=== PATIENT | female | born 1945 | race Caucasian/White ===

== ENCOUNTER 2019-12-02 11:11 | Inpatient (IN) | payer MEDICARE, BC, SELFPAY ==
[2019-12-02] VITALS (8 sets, daily range): BP systolic 148–212; BP diastolic 79–175; PULSE 73–146; RESP 14–22; TEMP 36.7–36.8; O2SAT 95–100
--- NOTE | ~2019-12-02 | XR_ITS ---
EXAMINATION: XR chest 2V EXAM DATE: 12/02/2019 12:19 INDICATION: Weakness. Diarrhea, abdominal pain. TECHNIQUE: Frontal and lateral projections of the chest obtained and reviewed. Comparison is made to prior examination from 07/21/2019. FINDINGS: The lungs are clear. There are no pleural effusions. Cardiac silhouette is prominent but magnified on this AP technique. There is no pneumothorax suspected. The bones and soft tissues are unremarkable. There is no significant interval change. IMPRESSION: No acute cardiopulmonary findings. Reviewed, dictated and finalized at location A.
--- NOTE | ~2019-12-02 | CT_ITS ---
EXAMINATION: CT abdomen pelvis w con EXAM DATE: 12/02/2019 12:53 INDICATION: Diarrhea. Weakness. Abdominal cramping. TECHNIQUE: Spiral CT of the abdomen and pelvis was performed following intravenous injection of 100 m L Omnipaque 350. Axial, coronal and sagittal images were reviewed. The dose-length product (DLP) fo r this examination was 1598.79 mGy-cm. The exposure was tailored according to patient size (auto mA exposure control), and iterative reconstruction (ASIR) was used as additional dose reduction techniqu e. There is no prior study for comparison. FINDINGS: The liver, spleen, adrenal glands and pancreas are unremarkable. Gallbladder not identifie d, patient likely has had cholecystectomy. Portal and splenic veins are patent. Kidneys enhance sym metrically. There is no hydronephrosis. Mild bilateral renal atrophy. The uterus is unremarkable. The bladder is undistended at time of imaging. There is no retroperitoneal or pelvic lymphadenopath y. The appendix is normal. Gastric surgical changes. There is small amount of colonic stool. No free intraperitoneal gas. The heart is normal in size. There are no pericardial or pleural effusions. The lung bases are unremarkable. There are no osteoblastic or osteolytic lesions identified. IMPRESSION: 1. No acute intra-abdominal findings. Reviewed, dictated and finalized at location A.
--- NOTE | 2019-12-02 11:16 | ECG_ITS ---
Measurements Intervals [place] Rate: 84 P: 86 HI: 155 QRS: -12 QRSD: 108 T: -18 QT: 337 QTc: 400 Interpretive Statements SINUS RHYTHM WITH SINUS ARRHYTHMIA FREQUENT ATRIAL PREMATURE COMPLEXES INCOMPLETE RIGHT BUNDLE BRANCH BLOCK NONSPECIFIC T-WAVE ABNORMALITY- ANTEROLAT/INF LEADS BASELINE ARTIFACT- I, II, III, AVR, AVL, AVF, V1-V6 ABNORMAL ECG Electronically Signed On 12-02-2019 15:07:22 CDT by Stu Sauceda D.O.
[2019-12-02 11:38] LABS: Basophils Absolute Auto 0.1 K/mm3 (0.0-0.1); Basophils Percent Auto 0.4 % (0.2-1.2); Eosinophils Absolute Auto 0.4 K/mm3 (0-0.3); Eosinophils Percent Auto 2.4 % (0-4.4); Hematocrit 40.1 % (37.0-47.0); Hemoglobin 11.8 g/dL (12.0-15.0); Immature Granulocyte Absolute 0.07 K/mm3 (0.00-0.031); Immature Granulocyte Percent A 0.5 % (0-0.5); Lymphocytes Absolute Auto 9.46 K/mm3 (0.9-3.2); Lymphocytes Percent Auto 62.2 % (18.3-44.2); Mean Corpuscular HGB Conc 29.4 g/dl (32-36); Mean Corpuscular Hemoglobin 22.8 pg (26-34); Mean Corpuscular Volume 77.6 fl (80-100); Mean Platelet Volume 10.5 fl (7.4-10.4); Monocytes Absolute Auto 0.5 K/mm3 (0.1-0.6); Monocytes Percent Auto 3.2 % (2.6-8.5); Neutrophils Absolute Auto 4.8 K/mm3 (1.3-6.7); Neutrophils Percent Auto 31.3 % (45.5-73.1); Platelet Count Result 233 k/mm3 (150-375); Red Blood Count 5.17 M/mm3 (4.2-5.4); Red Cell Distribution Width 15.7 % (11.5-14.5); White Blood Count 15.2 K/mm3 (4.5-10.0)
[2019-12-02 11:45] LABS: Platelet Estimate Adequate (Adequate)
[2019-12-02 11:46] LABS: Ovalocytes 1+ (NORMAL)
[2019-12-02 11:52] LABS: Alanine Aminotransferase 13 U/L (4-35); Albumin Level 3.6 g/dL (3.5-5.1); Alkaline Phosphatase 116 U/L (38-126); Aspartate Amino Transferase 19 U/L (14-36); Bilirubin,Total 0.5 mg/dL (0.2-1.3); Blood Urea Nitrogen 20 mg/dL (7-17); Calcium 9.4 mg/dL (8.4-10.2); Carbon Dioxide 32 mmol/L (22-30); Chloride 98 mmol/L (98-107); Estimated CRCL calculation 64 ml/min; Estimated Glomerular Filt Rate 49; Glucose 356 mg/dL (65-105); Potassium 4.2 mmol/L (3.4-5.0); Sodium 133 mmol/L (137-145)
--- NOTE | 2019-12-02 12:01 | ED.WEAKNESS ---
HPI - Weakness General Chief complaint: Weakness Stated complaint: weakness x3 weeks Time Seen by Provider: 12/02/19 11:20 Source: patient Mode of arrival: EMS Limitations: no limitations History of Present Illness HPI Narrative: Patient is a 74-year-old female who presents to the emergency department complaint of generalized weakness. Patient states she has felt weak all over for the past 3 weeks, but symptoms were significantly worse today. Patient almost fell twice but managed to get herself into a chair and did not sustain actual fall or injury. Patient states when she gets up to try and walk her legs shake in she feels severely weak. Patient states she has had some diarrhea for the past 3 days and a little bit of nausea. She denies any abdominal pain. She denies any fever, chest pain, cough, or shortness of breath. MD Complaint: generalized weakness and difficulty walking Onset (ago): week(s) (3) Duration: constant and progressively worsening Location: generalized Related Data Home Medications Medication Instructions Recorded Confirmed simvastatin 40 mg tablet 40 mg PO DAILY 07/10/19 sitagliptin 100 mg tablet 100 mg PO DAILY 07/10/19 insulin detemir U-100 [Levemir 18 unit SUBCUT HS 12/02/19 FlexTouch U-100 Insuln] insulin detemir U-100 [Levemir 66 unit SUB-Q QAM 12/02/19 U-100 Insulin] levothyroxine [Synthroid] 175 mcg PO DAILY 12/02/19 meclizine 25 mg PO BID 12/02/19 mirabegron [Myrbetriq] 25 mg PO DAILY 12/02/19 naltrexone 4.5 mg PO DAILY 12/02/19 Allergies Allergy/AdvReac Type Severity Reaction Status Date / Time amlodipine Allergy Intermediate Hives Verified 12/02/19 11:36 Review of Systems Review of Systems: All systems reviewed & are unremarkable except as noted in HPI and below Constitutional: Constitutional: Denies fever(s) and Reports weakness Cardiovascular: Cardiovascular: Denies chest pain Respiratory: Respiratory: Denies cough and Denies dyspnea Gastrointestinal: Gastrointestinal: Denies abdominal pain, Reports diarrhea and Reports nausea PMFSH Past Medical History Medical History Anxiety disorder, unspecified Choroid melanoma of left eye COPD (chronic obstructive pulmonary disease) Depression Mixed hyperlipidemia Thyroid cancer Type 2 diabetes mellitus without complications Surgical History Surgical History (Updated 12/02/19 @ 12:06 by Bibiana Krishna MD) History of cholecystectomy History of thyroidectomy History of total knee replacement Social History Social History Smoking status: Never smoker Second hand tobacco smoke exposure: No Alcohol intake: never Exam Const: General: cooperative, no acute distress and alert Nutritional Appearance: obese morbidly obese Orientation/consciousness: patient oriented x3 Limitations: no limitations Resp: Effort & Inspection: normal respiratory effort Auscultation: clear to auscultation bilaterally Cardio: Rate: regular rate Rhythm: regular rhythm GI: GI Palp: Yes Soft to palpation and No Tenderness to palpation present (GI) Auscultation: normal bowel sounds Skin: General skin exam: normal color Neuro: General: patient oriented x3 Cognition (Neuro): normal cognition Speech: normal speech Extrem: General: normal to inspection, full ROM and no clubbing, cyanosis or edema Psych: Mental Status: mental status grossly normal Affect: normal affect Attitude: cooperative Course Course Emergency Course: Patient appears to be slightly dehydrated based on labs. Patient given liter of IV fluids. Attempted orthostatic vital signs after patient given fluids and patient very weak and shaky in her legs. She became tachycardic and dizzy and was unable to make any attempted ambulation. Patient placed back in bed and will be admitted to hospitalist service for further evaluation. No acute abnormalitie
[2019-12-02 12:11] LABS: Add Urine Microscopic? YES; Appearance Urine Clear (Clear); Bacteria Urine Trace /hpf; Bilirubin Urine Negative (Negative); Blood Urine Negative (Negative); Color Urine Yellow (Yellow); Glucose Urine UA 3+ mg/dL (Negative); Ketones Urine Negative (Negative); Leukocyte Esterase Ur Negative LEU/UL (Negative); Mucus Urine Rare /lpf; Nitrate Urine Negative (Negative); Protein Urine 1+ mg/dL (Negative); RBC Urine 0-2 /hpf (0-2); Squamous Epithelial Cell Urine Occasional /hpf (Few); Urobilinogen Urine Negative mg/dL (<2.0); WBC Urine 0-3 /hpf
[2019-12-02 12:12] LABS: Specific Grav Ur 1.031 (1.001-1.035)
[2019-12-02 12:18] LABS: Creatine Kinase 30 U/L (30-135)
--- NOTE | 2019-12-02 12:28 | PC.NURSE ---
Called lab to add on CK.
[2019-12-02] MEDS: LACTATED RINGERS 1,000 ML 999 ML IV CONT (13:29)
--- NOTE | 2019-12-02 16:12 | PC.NURSE ---
This patient, Nydia Sánchez, was admitted to 2 Medical Room 259-01. Patient/family oriented to hospital policies and general routines including ID bracelet, bed and alarms, visiting hours, pain management, procedures, bathroom and other care routines, personal items, smoking policy, room service/diet, and visiting hours. Valuables list has been completed. Information on how to activate the Rapid Response Team has been discussed. Patient/Family are encouraged to report perceived risks to care and to ask questions if they do not understand what they are told or what they should do.
[2019-12-02 16:33] LABS: Glucose Point of Care 270 (65-105)
[2019-12-02] MEDS: SODIUM CHLORIDE 0.9% IV 1,000 ML 125 ML IV CONT (17:14)
--- NOTE | 2019-12-02 17:40 | PC.NURSE ---
Patient reports her son has her medication bottles at home and can confirm her home medications. Call to son Marcel by charge nurse Emy but unable to reach him at this time. Will obtain list once son can confirm.
--- NOTE | 2019-12-02 19:00 | PM.IMHP ---
H&P: HPI History of Present Illness Chief complaint: Generalized weakness. Narrative: Nydia Sánchez is a 74-year-old female with insulin-dependent diabetes, COPD, hypertension, and morbid obesity who presented to the emergency department earlier this morning via EMS from home for evaluation of generalized weakness. She notes progressive weakness over the past 3 weeks or so, but cannot really pinpoint anything that may be causing the weakness. She does admit however that she has not been very active recently, and has only left house 2 times since October 19, [address]. For the last several days she has had decreased oral intake due to nausea and she also reports having about 3 loose stools per day. She has been very thirsty ?and I cannot quench my thirst.? She was hyperglycemic on arrival to the emergency department, and with further questioning she does admit that she has not been checking her glucose recently as her glucometer is not currently working. In any regard, this morning she reports feeling weak and dizzy upon standing and while ambulating to the bathroom her legs began to wobble, and she had to sit immediately down in a chair to prevent herself from falling. She denies fever, chills, and sweats. No cold or flu symptoms. She denies cough and shortness of breath. No recent travel or sick contacts. No known exposure to those positive with COVID-19. She denies vomiting. No dysuria. No blood or mucus in the stool. Review of Systems Review of Systems: Narrative: Twelve systems were reviewed with pertinent positives and negatives as per HPI. No headache or neck ache. No recent cold or flu symptoms. She denies cough and shortness of breath. No orthopnea or PND. She has chronic lower extremity edema which is unchanged. She denies focal weakness and paresthesias. No auditory or visual changes. No chest pain or palpitations. Except as documented, all other systems were reviewed and are negative. [facility] Past Medical History Medical History (Updated 12/02/19 @ 22:04 by Wilda Vega PA-C) Anxiety disorder, unspecified Choroid melanoma of left eye It sounds as though she had a radioactive plaque inserted. Chronic kidney disease, stage 3 Baseline creatinine between 1.0 and 1.30. COPD (chronic obstructive pulmonary disease) Depression Diastolic dysfunction Echocardiogram in July 2018 showed normal left ventricular size and function was pseudo normal diastolic dysfunction grade 2 ejection fraction estimated at 60 to 65%. GERD (gastroesophageal reflux disease) Hypothyroidism Insulin dependent type 2 diabetes mellitus Mixed hyperlipidemia Morbid obesity Thyroid cancer Urinary, incontinence, stress female Surgical History Surgical History History of cholecystectomy History of thyroidectomy History of total knee replacement Family History Family History Mother Cerebrovascular accident Diabetes mellitus Hypertension Father Chronic obstructive pulmonary disease Other Family history of coronary artery disease Social History Social History (Updated 12/02/19 @ 22:01 by Wilda Vega PA-C) Social History: The patient lives in [place] with her son and his family. She designates her son, Farhat, as her surrogate decision maker and she wishes to be a full code. She is a lifelong nonsmoker and denies alcohol and drug abuse. Patient ambulates with a walker. Second hand tobacco smoke exposure: Yes Spiritual care concerns: No Agree to blood products: Yes Meds Home Medications and Allergies Home Medications Medication Instructions Recorded Confirmed Type losartan 100 mg tablet 100 mg PO DAILY #90 tablet 10/01/19 12/02/19 Rx prochlorperazine maleate 5 mg 5 mg PO Q8H PRN #30 tablet 11/15/19 12/02/19 Rx tablet meloxicam 7.5 mg tablet 7.5 mg PO BID #
[2019-12-02 22:31] LABS: Hemoglobin A1C 13.3 % (<5.7)
[2019-12-02 22:31] LABS: Iron 57 ug/dL (37-170)
[2019-12-02 22:39] LABS: Percent Iron Saturation 17 % (20-50)
[2019-12-02] MEDS: INSULIN DETEMIR 100 UNITS/ML 18 UNITS SUB-Q (23:11)
[2019-12-02] MEDS: ZOLPIDEM TARTRATE 5 MG TABLET PO (23:13)
[2019-12-02 23:39] LABS: Folic Acid 7.9 ng/mL (2.76->20)
[2019-12-03 00:31] LABS: Glucose Point of Care 336 (65-105)
[2019-12-03] MEDS: SODIUM CHLORIDE 0.9% IV 1,000 ML 125 ML IV CONT (01:16)
[2019-12-03 05:21] LABS: Basophils Absolute Auto 0.1 K/mm3 (0.0-0.1); Basophils Percent Auto 0.6 % (0.2-1.2); Eosinophils Absolute Auto 0.4 K/mm3 (0-0.3); Eosinophils Percent Auto 2.8 % (0-4.4); Hemoglobin 11.1 g/dL (12.0-15.0); Immature Granulocyte Absolute 0.07 K/mm3 (0.00-0.031); Immature Granulocyte Percent A 0.5 % (0-0.5); Lymphocytes Absolute Auto 9.43 K/mm3 (0.9-3.2); Lymphocytes Percent Auto 66.4 % (18.3-44.2); Mean Corpuscular HGB Conc 29.2 g/dl (32-36); Mean Corpuscular Hemoglobin 23.1 pg (26-34); Mean Corpuscular Volume 79.2 fl (80-100); Mean Platelet Volume 10.2 fl (7.4-10.4); Monocytes Absolute Auto 0.6 K/mm3 (0.1-0.6); Monocytes Percent Auto 4.4 % (2.6-8.5); Neutrophils Absolute Auto 3.6 K/mm3 (1.3-6.7); Neutrophils Percent Auto 25.3 % (45.5-73.1); Platelet Count Result 177 k/mm3 (150-375); Red Cell Distribution Width 15.7 % (11.5-14.5); White Blood Count 14.2 K/mm3 (4.5-10.0)
[2019-12-03 05:26] LABS: Blood Urea Nitrogen 17 mg/dL (7-17); Calcium 8.9 mg/dL (8.4-10.2); Carbon Dioxide 27 mmol/L (22-30); Chloride 104 mmol/L (98-107); Estimated CRCL calculation 77 ml/min; Estimated Glomerular Filt Rate > 60; Glucose 248 mg/dL (65-105); Magnesium 1.4 mg/dL (1.6-2.3); Phosphorus 3.5 mg/dL (2.5-4.5); Potassium 3.7 mmol/L (3.4-5.0); Sodium 135 mmol/L (137-145)
[2019-12-03 05:56] VITALS: BP 158/82; PULSE 86; RESP 20; TEMP 36.8; O2SAT 96
[2019-12-03 06:11] LABS: Atypical Lymphocytes Present; Eosinophils Absolute Manual 0.56 K/mm3 (0.02-0.5); Eosinophils Percent Manual 4 % (0-4); Lymphocytes Absolute Manual 7.24 K/mm3 (1.1-4.5); Monocytes Absolute Manual 0.42 K/mm3 (0.1-0.90); Monocytes Percent Manual 3 % (3-9); Neutrophils Percent Manual 42 % (46-73); Platelet Estimate Adequate (Adequate); Total Cells Counted 100
[2019-12-03 06:12] LABS: Hypochromasia 2+ (NORMAL); Ovalocytes 1+ (NORMAL); Smudge Cells PRESENT
[2019-12-03 06:34] LABS: Thyroid Stimulating Hormone Reflex 0.086 uIU/mL (0.465-4.68)
[2019-12-03] MEDS: LEVOTHYROXINE SODIUM 75 MCG TABLET PO (06:43)
[2019-12-03] MEDS: LEVOTHYROXINE SODIUM 100 MCG TABLET PO (06:43)
[2019-12-03 07:42] LABS: Glucose Point of Care 219 (65-105)
[2019-12-03] MEDS: INSULIN ASPART (*BKC) 100 UNITS/ML SUB-Q ×2 (08:01→11:47)
[2019-12-03] MEDS: INSULIN DETEMIR 100 UNITS/ML 66 UNITS SUB-Q (08:02)
[2019-12-03] MEDS: MECLIZINE HCL 25 MG TABLET PO ×2 (08:14→17:32)
[2019-12-03] MEDS: ENOXAPARIN 40 MG/0.4 ML SYRINGE SUB-Q (08:14)
[2019-12-03] MEDS: PANTOPRAZOLE 40 MG TABLET PO (08:14)
[2019-12-03] MEDS: MIRABEGRON 25 MG ER TABLET PO (08:14)
[2019-12-03] MEDS: LOSARTAN POTASSIUM 100 MG TABLET PO (08:14)
[2019-12-03] MEDS: SODIUM CHLORIDE 0.9% IV 1,000 ML 100 ML IV CONT (10:39)
[2019-12-03 11:46] LABS: Glucose Point of Care 266 (65-105)
[2019-12-03 14:00] VITALS: BP 127/55; PULSE 86; RESP 17; TEMP 36.9; O2SAT 98
--- NOTE | 2019-12-03 15:42 | PM.IMPN ---
Progress Note: A&P Assessment and Plan (1) Generalized weakness: Code(s): R53.1 - Weakness Status: Acute Assessment and Plan: Likely multifactorial in etiology to include chronic debility exacerbated by limited activity due to [facility] in place over the past month and a half in addition to poor oral intake, diarrhea, and hyperglycemia. Initiate fall precautions. PT/OT consulted. 12/03/19 15:42 Patient is 74-year-old female presented emergency department with a complaint of weakness difficulty with ambulation her symptoms are persisting for last 3 weeks she denies any complaint of dysuria or frequency of urination chest pain palpitation fever or chills, her urine is benign, chest x-ray does not show any any sign of infiltrate, most likely is multifactorial is patient history of hypothyroid with with low TSH and high T4, uncontrolled diabetes with A1c of 13.3, and hypomagnesium patient with history of hypothyroid taking levothyroxine 175 mcg q.day, her TSH is low and her free T4 is high suggesting patient patient is taking too much levothyroxine this can possibly result and weakness, however heart rate is under control, will hold her levothyroxine for time being, it may take at least 6 weeks to adjust her her thyroid levels. Similarly patient has uncontrolled diabetes with hemoglobin A1c of 13.3 hyperglycemia can also lead to generalized weakness will have community nutrition educator consult her, will monitor magnesium and the supplement (2) Leukocytosis: Code(s): D72.829 - Elevated white blood cell count, unspecified Status: Acute Assessment and Plan: 62.2% lymphocytes and 31.3 % neutrophils noted on automated differential. 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 (3) Insulin dependent type 2 diabetes mellitus: Code(s): E11.9 - Type 2 diabetes mellitus without complications; Z79.4 - skilled nursing (current) use of insulin Status: Acute Assessment and Plan: Random glucose was 356 on arrival to the emergency department. Continue basal insulin and check hemoglobin A1c. Initiate sliding scale insulin, Accu-Cheks, and hypoglycemic protocol. Plan is above (4) Microcytic anemia: Code(s): D50.9 - Iron deficiency anemia, unspecified Status: Acute Assessment and Plan: Check iron studies as well as stool for occult blood. Patient had an is normal however iron saturation is low (5) Hypothyroidism: Code(s): E03.9 - Hypothyroidism, unspecified Status: Acute Assessment and Plan: Continue levothyroxine and check TSH. Plan is above Subjective Date/time seen: 12/03/19 15:42 Patient is 74-year-old female presented emergency department with a complaint of weakness difficulty with ambulation her symptoms are persisting for last 3 weeks she denies any complaint of dysuria or frequency of urination chest pain palpitation fever or chills, her urine is benign, chest x-ray does not show any any sign of infiltrate, most likely is multifactorial is patient history of hypothyroid with with low TSH and high T4, uncontrolled diabetes with A1c of 13.3, and hypomagnesium patient with history of hypothyroid taking levothyroxine 175 mcg q.day, her TSH is low and her free T4 is high suggesting patient patient is taking too much levothyroxine this can possibly result and weakness, however heart rate is under control, will hold her levothyroxine for time being, it may take at least 6 weeks to adjust her her thyroid levels. Similarly patient has uncontrolled diabetes with hemoglobin A1c of 13.3 hyperglycemia can also lead to generalized weakness will have community nutrition educator consult her,
[2019-12-03 16:47] LABS: Glucose Point of Care 183 (65-105)
[2019-12-03] MEDS: MAGNESIUM SULF 2 GM/WATER 50ML 2 GM/50 ML BAG IVPB (17:30)
[2019-12-03 20:00] VITALS: PULSE 96; RESP 20; O2SAT 96
[2019-12-03] MEDS: ZOLPIDEM TARTRATE 5 MG TABLET PO (20:22)
[2019-12-03] MEDS: INSULIN DETEMIR 100 UNITS/ML 18 UNITS SUB-Q (20:24)
[2019-12-03 20:39] LABS: Glucose Point of Care 225 (65-105)
[2019-12-03 22:00] VITALS: BP 194/92; PULSE 96; RESP 20; TEMP 36.3; O2SAT 96
[2019-12-04 06:00] VITALS: BP 190/94; PULSE 67; RESP 20; TEMP 36.3; O2SAT 96
[2019-12-04] MEDS: LOSARTAN POTASSIUM 100 MG TABLET PO (06:12)
[2019-12-04 06:29] LABS: Hematocrit 37.6 % (37.0-47.0); Hemoglobin 11.1 g/dL (12.0-15.0); Mean Corpuscular HGB Conc 29.5 g/dl (32-36); Mean Corpuscular Hemoglobin 22.7 pg (26-34); Mean Platelet Volume 9.8 fl (7.4-10.4); Platelet Count Result 189 k/mm3 (150-375); Red Blood Count 4.88 M/mm3 (4.2-5.4); Red Cell Distribution Width 15.7 % (11.5-14.5); White Blood Count 13.5 K/mm3 (4.5-10.0)
[2019-12-04 06:40] LABS: Blood Urea Nitrogen 16 mg/dL (7-17); Calcium 8.8 mg/dL (8.4-10.2); Carbon Dioxide 23 mmol/L (22-30); Chloride 106 mmol/L (98-107); Estimated CRCL calculation 86 ml/min; Estimated Glomerular Filt Rate > 60; Glucose 142 mg/dL (65-105); Potassium 3.9 mmol/L (3.4-5.0); Sodium 133 mmol/L (137-145)
[2019-12-04 07:20] LABS: Thyroid Stimulating Hormone Reflex 0.109 uIU/mL (0.465-4.68)
[2019-12-04 07:39] LABS: Glucose Point of Care 149 (65-105)
[2019-12-04 08:20] VITALS: BP 170/96; PULSE 71; RESP 24; TEMP 36.5; O2SAT 100
--- NOTE | 2019-12-04 08:40 | PC.NURSE ---
Unable to administer PRN hydralizine due to lack of IV access. Will continue to monitor blood pressure. IV access nurse called and to see patient.
[2019-12-04] MEDS: INSULIN DETEMIR 100 UNITS/ML 33 UNITS SUB-Q (08:47)
[2019-12-04] MEDS: PANTOPRAZOLE 40 MG TABLET PO (08:49)
[2019-12-04] MEDS: MECLIZINE HCL 25 MG TABLET PO ×2 (08:49→17:06)
[2019-12-04] MEDS: MIRABEGRON 25 MG ER TABLET PO (08:49)
[2019-12-04] MEDS: ENOXAPARIN 40 MG/0.4 ML SYRINGE SUB-Q (08:49)
[2019-12-04] MEDS: MAGNESIUM OXIDE 400 MG TABLET PO (08:50)
[2019-12-04 09:25] VITALS: BP 142/73; PULSE 93; O2SAT 96
[2019-12-04] MEDS: INSULIN ASPART (*BKC) 100 UNITS/ML SUB-Q ×2 (11:27→17:05)
[2019-12-04 11:38] LABS: Glucose Point of Care 241 (65-105)
--- NOTE | 2019-12-04 11:54 | PCOTNOTE ---
Patient sleeping soundly upon therapist arrival, patient not disturbed for this reason. Not seen for OT this AM, will try later if time permits.
[2019-12-04 14:00] VITALS: BP 153/80; PULSE 86; RESP 22; TEMP 36.6; O2SAT 96
--- NOTE | 2019-12-04 15:42 | PM.DS ---
DS: Diagnosis Admitting Diagnosis Admitting Diagnosis: Weakness Discharge Diagnosis (1) Generalized weakness: Code(s): R53.1 - Weakness Status: Acute Assessment and Plan: Likely multifactorial in etiology to include chronic debility exacerbated by limited activity due to group home in place over the past month and a half, in addition to poor oral intake, diarrhea, and hyperglycemia. Patient states she feels much improved today. PT/OT consulted. Will discharge today; home with PT/OT Recommended patient follow up with Endocrinologists after discharge about TSH/T4 abnormalities and A1c of 13.3 Will continue DM home regimen with prompt follow up with her Chucker. Recommend checking sugars 4-5 times daily and keeping a log. Will provide script for new glucometer/strips (2) Leukocytosis: Code(s): D72.829 - Elevated white blood cell count, unspecified Status: Acute Assessment and Plan: 62.2% lymphocytes and 31.3 % neutrophils noted on automated differential. Possibly signs of early CLL? Discussed the need to follow-up with her communication and outreach manager/oncologist as an outpatient. Patient agreeable with plan (3) Insulin dependent type 2 diabetes mellitus: Code(s): E11.9 - Type 2 diabetes mellitus without complications; Z79.4 - intermediate project manager (current) use of insulin Status: Acute Assessment and Plan: Random glucose was 356 on arrival to the emergency department. A1c 13.3. Patient states she was not very compliant with her diabetic diet these past several weeks, drinking soda regularly for several days prior to arrival Continue home insulin regimen Recommend following up with Chucker Frequent glucose checks at home as well Sliding scale insulin, Accu-Cheks, and hypoglycemic protocol during stay (4) Microcytic anemia: Code(s): D50.9 - Iron deficiency anemia, unspecified Status: Acute Assessment and Plan: Iron sat low; Iron, TIBC WNL. Stool occult not collected. Hgb 11.1 today; stable Will recommend repeat blood work in 1 week (5) Hypothyroidism: Code(s): E03.9 - Hypothyroidism, unspecified Status: Acute Assessment and Plan: TSH low, and T4 slightly high Will continue levothyroxine and check TSH as outpatient. Follow up with Chucker DS: Summary Hospital Course Reason for hospitalization: Generalized weakness Hospital Course: Patient is a 74 yo F with insulin-dependent diabetes, COPD, hypertension, and morbid obesity who presented to the emergency department on morning of 12/01 via EMS from home for evaluation of generalized weakness. PAtient notes progressive weakness over previous 3 weeks prior to arrival, but could not pinpoint anything possibly causing weakness. She had noted being very inactive since the begininning october due to group home in place order. She was found to be hyperglycemic on arrival to ER. She had noted her glucometer was not functioning properly. Please see H&P for further details Presenting VS: Temp Pulse Resp BP Pulse Ox 98.2 F 87 18 163/97 H 96 RA 12/02/19 11:08 12/02/19 11:08 12/02/19 11:08 12/02/19 11:08 12/02/19 11:08 Presenting Pertinent labs: WBC 15.2k, lymph 62.2%, neut 31.3%, BGL 356, A1c 13.3, Cr 1.10, iron 57, TIBC 342, %sat 17, ferritin 10.70. UA showed 1+ protein, 3+ glucose, 5-9 hyaline casts. CBC, chemistry, UA otherwise unremarkable. Micro: none Imaging: Chest X-Ray 12/02/19 12:21 IMPRESSION: No acute cardiopulmonary findings. Abdomen/Pelvis CT 12/02/19 12:56 IMPRESSION: 1. No acute intra-abdominal findings. ECG: Interpretive Statements SINUS RHYTHM WITH SINUS ARRHYTHMIA FREQUENT ATRIAL PREMATURE COMPLEXES INCOMPLETE
[2019-12-04 16:47] LABS: Glucose Point of Care 233 (65-105)
[2019-12-04 17:39] LABS: Free T4 Free Thyroxine Reflex 2.12 ng/dL (0.78-2.19)
[2019-12-04 18:29] LABS: Total Triiodothyronine (T3) 0.84 NG/ML (0.97-1.69)
== END 2019-12-04 18:14 | disposition home health service (06) | DRG 638 ==
LOC: ANHED 15:27 → ANH2MED 15:45
PROVIDERS: Family Medicine; Physician Assistant; Admitting Provider Internal Medicine; Emergency Provider Emergency Medicine; PCP Family Medicine; Visit Provider Internal Medicine
DX: E11.65 Type 2 diabetes mellitus with hyperglycemia (principal); Z68.43 Body mass index [BMI] 50.0-59.9, adult; E66.01 Morbid (severe) obesity due to excess calories; D72.829 Elevated white blood cell count, unspecified; R53.1 Weakness; R53.81 Other malaise; E86.0 Dehydration; R19.7 Diarrhea, unspecified; I12.9 Hypertensive chronic kidney disease with stage 1 through stage 4 chronic kidney disease, or unspecified chronic kidney disease; E11.22 Type 2 diabetes mellitus with diabetic chronic kidney disease; N18.3 Chronic kidney disease, stage 3 (moderate); D50.9 Iron deficiency anemia, unspecified; E03.9 Hypothyroidism, unspecified; J44.9 Chronic obstructive pulmonary disease, unspecified; F41.8 Other specified anxiety disorders; E78.2 Mixed hyperlipidemia; K21.9 Gastro-esophageal reflux disease without esophagitis; N39.3 Stress incontinence (female) (male); Z96.659 Presence of unspecified artificial knee joint; Z85.850 Personal history of malignant neoplasm of thyroid; Z85.820 Personal history of malignant melanoma of skin; Z79.4 Long term (current) use of insulin; Z90.49 Acquired absence of other specified parts of digestive tract
CPT/HCPCS: 36415; 51701; 71046; 74177; 80048; 80053; 81001; 82550; 82607; 82728; 82746; 83036; 83540; 83550; 83735; 84100; 84439; 84443; 84480; 85025; 85027; 93005; 94762; 96360; 96361; 96372; 97110; 97116; 97161; 97165; 99285; A9270; G0378; J1650; J1815; J3475; J7030; J7120; Q9967

== ENCOUNTER 2020-01-16 11:55 | Emergency (ER) | payer MEDICARE, BC, SELFPAY ==
--- NOTE | ~2020-01-16 | CT_ITS ---
EXAMINATION: CT abdomen pelvis w con EXAM DATE: 01/16/2020 15:59 INDICATION: Abdominal pain, nausea, weakness. TECHNIQUE: Spiral CT of the abdomen and pelvis was performed following intravenous injection of 100 m L Omnipaque 350. Axial, coronal and sagittal images were reviewed. The dose-length product (DLP) fo r this examination was 1557.99 mGy-cm. The exposure was tailored according to patient size (auto mA exposure control), and iterative reconstruction (ASIR) was used as additional dose reduction techniqu e. Comparison is made to prior examination from 12/02/2019. FINDINGS: The liver, spleen, adrenal glands and pancreas are unremarkable. Gallbladder is unremarkab le. No biliary obstruction. Portal and splenic veins are patent. Kidneys enhance symmetrically. T here is no hydronephrosis. There is bilateral renal atrophy more on the left side. There is a right r enal cyst measuring 2.3 cm. The uterus is unremarkable. The bladder is unremarkable. There is no retroperitoneal or pelvic lymphadenopathy. The appendix is normal. Surgical changes, clips encasing the gastric cardia. There is expected amou nt of colonic stool. No free intraperitoneal gas. There is cardiomegaly. Right basilar granuloma . There are no osteoblastic or osteolytic lesions identified. Advanced lower lumbar facet arthropath y. IMPRESSION: 1. No acute intra-abdominal findings. Reviewed, dictated and finalized at location A.
[2020-01-16 12:02] VITALS: BP 160/109; PULSE 80; RESP 16; TEMP 36.7; O2SAT 94
[2020-01-16 12:36] LABS: Basophils Absolute Auto 0.1 K/mm3 (0.0-0.1); Basophils Percent Auto 0.5 % (0.2-1.2); Eosinophils Absolute Auto 0.5 K/mm3 (0-0.3); Eosinophils Percent Auto 2.8 % (0-4.4); Hematocrit 41.8 % (37.0-47.0); Hemoglobin 12.3 g/dL (12.0-15.0); Immature Granulocyte Absolute 0.06 K/mm3 (0.00-0.031); Immature Granulocyte Percent A 0.4 % (0-0.5); Lymphocytes Absolute Auto 10.47 K/mm3 (0.9-3.2); Lymphocytes Percent Auto 62.7 % (18.3-44.2); Mean Corpuscular HGB Conc 29.4 g/dl (32-36); Mean Corpuscular Hemoglobin 23.2 pg (26-34); Mean Corpuscular Volume 78.7 fl (80-100); Mean Platelet Volume 10.4 fl (7.4-10.4); Monocytes Absolute Auto 0.5 K/mm3 (0.1-0.6); Monocytes Percent Auto 3.1 % (2.6-8.5); Neutrophils Absolute Auto 5.1 K/mm3 (1.3-6.7); Neutrophils Percent Auto 30.5 % (45.5-73.1); Platelet Count Result 210 k/mm3 (150-375); Red Blood Count 5.31 M/mm3 (4.2-5.4); Red Cell Distribution Width 16.2 % (11.5-14.5); White Blood Count 16.7 K/mm3 (4.5-10.0)
[2020-01-16 12:49] LABS: Alanine Aminotransferase 10 U/L (4-35); Albumin Level 3.9 g/dL (3.5-5.1); Alkaline Phosphatase 87 U/L (38-126); Aspartate Amino Transferase 23 U/L (14-36); Bilirubin,Total 0.9 mg/dL (0.2-1.3); Blood Urea Nitrogen 18 mg/dL (7-17); Calcium 9.4 mg/dL (8.4-10.2); Carbon Dioxide 34 mmol/L (22-30); Chloride 100 mmol/L (98-107); Estimated CRCL calculation 64 ml/min; Estimated Glomerular Filt Rate 49; Glucose 176 mg/dL (65-105); Lipase 25 U/L (23-300); Sodium 137 mmol/L (137-145)
--- NOTE | 2020-01-16 13:22 | ED.ABDPAIN ---
HPI - Abdominal Pain General Chief Complaint: Abdominal Pain Stated Complaint: WEAKNESS/NAUSEAX 1 MONTH Time Seen by Provider: 01/16/20 13:12 History of Present Illness HPI narrative: Nausea for > 1 month. Continuous. No vomiting. Tolerating a small amount of solif food, No liquids. Associated with intermittent abdominal pain. She has seen her PCP multiple times. She has been put on zofran, protonix, reglan, compazine without improvment. Related Data Home Medications Medication Instructions Recorded Confirmed Januvia 100 mg PO DAILY 12/02/19 01/14/20 Levemir FlexTouch U-100 Insuln 18 unit SUBCUT HS 12/02/19 01/14/20 Myrbetriq 25 mg PO DAILY 12/02/19 01/14/20 levothyroxine [Synthroid] 175 mcg PO DAILY 12/02/19 01/14/20 meclizine 25 mg PO BID 12/02/19 01/14/20 naltrexone 4.5 mg PO DAILY 12/02/19 01/14/20 insulin detemir U-100 100 unit/mL 70 unit SUB-Q QAM ml 12/11/19 01/14/20 subcutaneous solution Allergies Allergy/AdvReac Type Severity Reaction Status Date / Time amlodipine Allergy Intermediate Hives Verified 12/11/19 13:45 Review of Systems Review of Systems: All systems reviewed & are unremarkable except as noted in HPI and below Constitutional: Constitutional: Denies chills, Denies fever(s) and Reports weakness ENT: Denies sore throat Cardiovascular: Cardiovascular: Denies chest pain Respiratory: Respiratory: Denies dyspnea Gastrointestinal: Gastrointestinal: Reports constipation, Reports diarrhea, Reports nausea and Denies vomiting Genitourinary: Genitourinary: Denies dysuria Neurologic: Denies dizziness and Denies weakness [facility] Past Medical History Medical History Anxiety disorder, unspecified Choroid melanoma of left eye It sounds as though she had a radioactive plaque inserted. Chronic kidney disease, stage 3 Baseline creatinine between 1.0 and 1.30. COPD (chronic obstructive pulmonary disease) Depression Diastolic dysfunction Echocardiogram in July 2018 showed normal left ventricular size and function was pseudo normal diastolic dysfunction grade 2 ejection fraction estimated at 60 to 65%. GERD (gastroesophageal reflux disease) Hypothyroidism Insulin dependent type 2 diabetes mellitus Microcytic anemia Mixed hyperlipidemia Morbid obesity Thyroid cancer Type 2 diabetes mellitus without complications Urinary, incontinence, stress female Surgical History Surgical History History of cholecystectomy History of thyroidectomy History of total knee replacement Family History Family History Mother Cerebrovascular accident Diabetes mellitus Hypertension Father Chronic obstructive pulmonary disease Other Family history of coronary artery disease Social History Social History Social History: The patient lives in [place] with her son and his family. She designates her son, Farhat, as her surrogate decision maker and she wishes to be a full code. She is a lifelong nonsmoker and denies alcohol and drug abuse. Patient ambulates with a walker. Second hand tobacco smoke exposure: Yes Gender identity (if verbalized by the patient): Female Spiritual care concerns: No Agree to blood products: Yes Exam Const: General: no acute distress, alert and ill appearing chronically Nutritional Appearance: obese morbidly obese Orientation/consciousness: patient oriented x3 HENMT: Head: normal to inspection Resp: Effort & Inspection: normal respiratory effort Auscultation: clear to auscultation bilaterally Cardio: Rate: regular rate Rhythm: regular rhythm GI: GI Palp: Yes Soft to palpation and No Tenderness to palpation present (GI) Neuro: General: patient oriented x3, moves all extremities and CN's II-XI intact bilaterally Speech: normal speech
[2020-01-16] MEDS: SODIUM CHLORIDE 0.9% IV 1,000 ML 30 ML IV CONT (13:52)
[2020-01-16] MEDS: SODIUM CHLORIDE 0.9% IV 1,000 ML 999 ML IV CONT (13:52)
[2020-01-16 13:53] VITALS: BP 138/103; PULSE 79; RESP 16; O2SAT 93
--- NOTE | 2020-01-16 13:55 | PC.NURSE ---
PT AGAIN REMINDED OF NEED FOR URINE, STATES SHE WANTS TO WAIT UNTIL SOME FLUID GETS THEN SHE WILL ATTEMPT. REFUSING CATH.
[2020-01-16] MEDS: METOCLOPRAMIDE HCL INJ 10 MG/2 ML VIAL IV PUSH (14:17)
[2020-01-16 15:11] LABS: Add Urine Microscopic? YES; Appearance Urine Clear (Clear); Bilirubin Urine Negative (Negative); Blood Urine Negative (Negative); Color Urine Yellow (Yellow); Glucose Urine UA Negative (Negative); Ketones Urine Negative (Negative); Leukocyte Esterase Ur Negative LEU/UL (Negative); Mucus Urine Rare /lpf; Nitrate Urine Negative (Negative); Protein Urine 1+ mg/dL (Negative); RBC Urine 0-2 /hpf (0-2); Specific Grav Ur 1.018 (1.001-1.035); Squamous Epithelial Cell Urine Occasional /hpf (Few); Urobilinogen Urine Negative mg/dL (<2.0); WBC Urine 0-3 /hpf
[2020-01-16 15:49] VITALS: BP 150/95; PULSE 80; RESP 18; O2SAT 98
[2020-01-16 17:00] VITALS: BP 141/73; PULSE 84; RESP 18; O2SAT 98
== END 2020-01-16 17:57 | disposition home or self-care (01) ==
PROVIDERS: Emergency Provider Emergency Medicine; PCP Family Medicine
DX: R11.0 Nausea (principal); Z79.84 Long term (current) use of oral hypoglycemic drugs; N18.3 Chronic kidney disease, stage 3 (moderate); E11.22 Type 2 diabetes mellitus with diabetic chronic kidney disease; J44.9 Chronic obstructive pulmonary disease, unspecified; F41.9 Anxiety disorder, unspecified; F32.9 Major depressive disorder, single episode, unspecified; Z79.4 Long term (current) use of insulin; I50.30 Unspecified diastolic (congestive) heart failure; K21.9 Gastro-esophageal reflux disease without esophagitis; E78.2 Mixed hyperlipidemia; Z85.850 Personal history of malignant neoplasm of thyroid; E66.01 Morbid (severe) obesity due to excess calories; Z68.43 Body mass index [BMI] 50.0-59.9, adult; E89.0 Postprocedural hypothyroidism; Z96.659 Presence of unspecified artificial knee joint; Z77.22 Contact with and (suspected) exposure to environmental tobacco smoke (acute) (chronic)
CPT/HCPCS: 36415; 51701; 74177; 80053; 81001; 83690; 85025; 96361; 96374; 99284; J2765; J7030; Q9967

== ENCOUNTER 2020-01-22 07:43 | Outpatient (CLI) | payer MEDICARE, BC, SELFPAY ==
--- NOTE | ~2020-01-22 | NM_ITS ---
EXAM: NM gastric emptying study DATE: 01/22/2020 13:25 CDT INDICATION: Nausea with vomiting TECHNIQUE: A gastric emptying study was performed using the methodology of Garry GARCIA, et al. J Nucl Med 2007; 48:568-572. The patient was given a meal consisting of 2 scrambled eggs labeled with mCi T c-99m sulfur colloid, 2 slices of toast, two packages of jam, and approximately 120 mL of water. Simu ltaneous anterior and posterior 1-min images of the abdomen were obtained with the patient supine at multiple time points over a total period of 4 hours. The geometric mean of anterior and posterior vie ws was determined, and the percentage retention was calculated for each time point. COMPARISON: None. FINDINGS: Gastric retention of the radiotracer-labeled meal was 83%, 53%, and 27% at the 1-hour, 2-h our, and 4-hour time points, respectively. With this technique, apparent rapid gastric emptying is grayson ggested by <30% gastric retention at 1 hour. Delayed gastric emptying is defined by gastric retention of >90% at 1 hour, >60% retention at 2 hours, or >10% retention at 4 hours. IMPRESSION: 1. Delayed gastric emptying. Reviewed, dictated and finalized at location A.
== END 2020-01-22 07:44 | disposition home or self-care (01) ==
PROVIDERS: PCP Family Medicine; Visit Provider Family Medicine
DX: R11.2 Nausea with vomiting, unspecified (principal); E11.9 Type 2 diabetes mellitus without complications; Z79.4 Long term (current) use of insulin; K30 Functional dyspepsia
CPT/HCPCS: 78264; A9541

== ENCOUNTER 2021-08-13 14:06 | Emergency (ER) | payer MEDICARE, BC, SELFPAY ==
[2021-08-13] VITALS (8 sets, daily range): BP systolic 93–122; BP diastolic 42–66; PULSE 64–89; RESP 16–20; TEMP 36.6; O2SAT 94–99
--- NOTE | ~2021-08-13 | XR_ITS ---
EXAMINATION: XR chest 2V DATE: 08/13/2021 14:39 INDICATION: Shortness of breath. Wheezing. TECHNIQUE: Frontal and lateral views of the chest were obtained. COMPARISON: Chest 2 views 12/02/2019, CT abdomen and pelvis 01/16/2020 FINDINGS: Sensitivity is decreased by obesity. There are mild airspace opacities in left mid and lowe r lung zones. There is a small left pleural effusion. No pneumothorax. Cardiomegaly is noted. There a re surgical clips in left abdomen. IMPRESSION: 1. Mild airspace opacities in left mid and lower lung zones, consistent with atelectasis versus pneum onia. 2. Small left pleural effusion. 3. Cardiomegaly. Reviewed, dictated and finalized at location B. RANCH HAND IMPRESSION: 1. Mild airspace opacities in left mid and lower lung zones, consistent with at electasis versus pneumonia. 2. Small left pleural effusion. 3. Cardiomegaly.
--- NOTE | ~2021-08-13 | CT_ITS ---
EXAMINATION: CT lumbar spine wo con DATE: 08/13/2021 19:13 INDICATION: Low back pain TECHNIQUE: Computed tomography (CT) of the lumbar spine was performed without intravenous contrast. T he dose-length product (DLP) was 1367.13 mGy-cm. Iterative reconstruction was used. COMPARISON: None FINDINGS: There is no fracture, dislocation, or subluxation. The vertebral body heights are normal. T here is mild loss of intervertebral disc space height throughout the lumbar spine. There is mild mult ilevel facet osteoarthritis. The prevertebral soft tissues are normal. There is a 2 mm nonobstructing stone of the left kidney. Punctate calcifications in an otherwise normal spleen likely represent hea led granulomatous disease. IMPRESSION: 1. Mild lumbar spondylosis without acute findings. Reviewed, dictated and finalized at location F. NEW GRADUATE
--- NOTE | 2021-08-13 14:14 | ECG_ITS ---
Measurements Intervals [place] Rate: 83 P: 66 VA: 159 QRS: -5 QRSD: 100 T: -55 QT: 380 QTc: 447 Interpretive Statements SINUS RHYTHM ATRIAL COUPLET AND ATRIAL PREMATURE COMPLEX ANTEROSEPTAL INFARCT, AGE INDETERMINATE BORDERLINE T WAVE ABNORMALITY- ANTEROLAT/INF LEADS BASELINE WANDER- II, III, V4 ABNORMAL ECG Electronically Signed On 08-13-2021 15:40:50 INDUSTRIAL ECONOMICS PROFESSOR by Stu Sauceda D.O.
[2021-08-13] MEDS: oxyCODONE/ACETAMINOPHEN (*CRX) 5-325 MG TABLET 1 TABLET PO (15:25)
[2021-08-13 15:32] LABS: Basophils Absolute Auto 0.1 K/mm3 (0.0-0.1); Basophils Percent Auto 0.6 % (0.2-1.2); Eosinophils Absolute Auto 0.3 K/mm3 (0-0.3); Eosinophils Percent Auto 2.7 % (0-4.4); Hematocrit 36.9 % (37.0-47.0); Hemoglobin 11.8 g/dL (12.0-15.0); Immature Granulocyte Absolute 0.06 K/mm3 (0.00-0.031); Immature Granulocyte Percent A 0.6 % (0-0.5); Lymphocytes Percent Auto 54.6 % (18.3-44.2); Mean Corpuscular Hemoglobin 28.2 pg (26-34); Mean Corpuscular Volume 88.3 fl (80-100); Mean Platelet Volume 10.6 fl (7.4-10.4); Monocytes Absolute Auto 0.4 K/mm3 (0.1-0.6); Monocytes Percent Auto 4.1 % (2.6-8.5); Neutrophils Percent Auto 37.4 % (45.5-73.1); Platelet Count Result 145 k/mm3 (150-375); Red Blood Count 4.18 M/mm3 (4.2-5.4); Red Cell Distribution Width 14.5 % (11.5-14.5); White Blood Count 10.6 K/mm3 (4.5-10.0)
[2021-08-13 15:38] LABS: Alanine Aminotransferase 14 U/L (4-35); Albumin Level 2.9 g/dL (3.5-5.1); Alkaline Phosphatase 63 U/L (38-126); Anion Gap 5 mmol/L (8-16); Aspartate Amino Transferase 24 U/L (14-36); Bilirubin,Total 0.6 mg/dL (0.2-1.3); Blood Urea Nitrogen 24 mg/dL (7-17); Calcium 9.3 mg/dL (8.4-10.2); Carbon Dioxide 28 mmol/L (22-30); Chloride 103 mmol/L (98-107); Estimated CRCL calculation 66 ml/min; Estimated Glomerular Filt Rate > 60; Glucose 162 mg/dL (65-110); Potassium 4.8 mmol/L (3.4-5.0); Sodium 136 mmol/L (137-145)
[2021-08-13] MEDS: LORazepam INJ (*CRX) 2 MG/ML VIAL 0.5 MG IV PUSH (16:37)
[2021-08-13] MEDS: ONDANSETRON INJ 4 MG/2 ML VIAL IV PUSH (16:39)
[2021-08-13] MEDS: HYDROmorphone HCL INJ (*CRX) 1 MG/ML SYR IV PUSH (16:41)
--- NOTE | 2021-08-13 18:30 | ED.GENADULT ---
HPI - General Adult General Chief complaint: Shortness of Breath/Dyspnea <Justin Brumfield MD - Last Filed: 08/26/21 23:57> Stated complaint: sob x 2 days <Justin Brumfield MD - Last Filed: 08/26/21 23:57> Time Seen by Provider: 08/13/21 15:09 <Justin Brumfield MD - Last Filed: 08/26/21 23:57> Source: patient and family <Justin Brumfield MD - Last Filed: 08/26/21 23:57> Mode of arrival: EMS <Justin Brumfield MD - Last Filed: 08/26/21 23:57> Limitations: no limitations <Justin Brumfield MD - Last Filed: 08/26/21 23:57> History of Present Illness HPI narrative: 76-year-old with a history of hypertension, diabetes, chronic low back pain here with complaints of increased low back pain for last 3 days. Patient states that pain is making her short of breath. She denies any fever or chills. No history of fall. As per the son who is at the bedside patient has been taking oxycodone with no relief. She was admitted to a intermediate and was discharged on August 01 since then she has declined. She denies any urinary symptoms. No history of cough or fever. <Justin Brumfield MD - Last Filed: 08/26/21 23:57> Onset (ago): day(s) (1) <Justin Brumfield MD - Last Filed: 08/26/21 23:57> Location: back (Lower back) <Justin Brumfield MD - Last Filed: 08/26/21 23:57> Severity: severe <Justin Brumfield MD - Last Filed: 08/26/21 23:57> Severity scale (1-10): 10 <Justin Brumfield MD - Last Filed: 08/26/21 23:57> Quality: aching <Justin Brumfield MD - Last Filed: 08/26/21 23:57> Pain Consistency: constant <Justin Brumfield MD - Last Filed: 08/26/21 23:57> Relieving factors: none <Justin Brumfield MD - Last Filed: 08/26/21 23:57> Exacerbating factors: none <Justin Brumfield MD - Last Filed: 08/26/21 23:57> Associated symptoms: shortness of breath <Justin Brumfield MD - Last Filed: 08/26/21 23:57> Related Data Home medications: Home Medications Medication Instructions Recorded Confirmed docusate sodium 100 mg capsule 100 mg PO DAILY 08/10/21 fluticasone 100 mcg-salmeterol 50 1 inh INHALATION Q12H 08/10/21 mcg/dose blistr powdr for inhalation lidocaine 5 % topical patch 1 patch TOPICAL DAILY 08/10/21 polyethylene glycol 3350 17 17 g PO DAILY 08/10/21 gram/dose oral powder quetiapine 25 mg tablet 25 mg PO QHS 08/10/21 trazodone 150 mg tablet 150 mg PO QHS PRN 08/10/21 <Justin Brumfield MD - Last Filed: 08/26/21 23:57> Allergies/adverse reactions: Allergies Allergy/AdvReac Type Severity Reaction Status Date / Time amlodipine Allergy Intermediate Hives Verified 08/18/21 07:59 <Justin Brumfield MD - Last Filed: 08/26/21 23:57> Review of Systems Review of Systems: All systems reviewed & are unremarkable except as noted in HPI and below <Justin Brumfield MD - Last Filed: 08/26/21 23:57> Constitutional: Constitutional: Reports no additional constitutional complaints <Justin Brumfield MD - Last Filed: 08/26/21 23:57> Eyes: Eyes: Reports no additional eye complaints <Justin Brumfield MD - Last Filed: 08/26/21 23:57> ENT: Reports system reviewed and no additional complaints, except as documented <Justin Brumfield MD - Last Filed: 08/26/21 23:57> Cardiovascular: Cardiovascular: Reports no additional cardiovascular complaints <Justin Brumfield MD - Last Filed: 08/26/21 23:57> Respiratory: Respiratory: Reports as per HPI <Justin Brumfield MD - Last Filed: 08/26/21 23:57> Gastrointestinal: Gastrointestinal: Reports no additional gastrointestinal complaints <Justin Brumfield MD - Last Filed: 08/26/21 23:57> Musculoskeletal: Musculoskeletal: Reports as per HPI <Justin Brumfield MD - Last Filed: 08/26/21 23:57> Neurologic: Reports system reviewed and no additional complaints, except as documented <Justin Brumfield MD - Last Filed: 08/26/21 23:57> PMFSH Past Medical History Medical History: Medical History (Reviewed
[2021-08-13] MEDS: CYCLOBENZAPRINE HCL 10 MG TABLET PO (21:46)
== END 2021-08-13 22:29 | disposition home or self-care (01) ==
PROVIDERS: Emergency Medicine; Emergency Provider Emergency Medicine; PCP Family Medicine
DX: M54.50 Low back pain, unspecified (principal); F41.9 Anxiety disorder, unspecified; E11.22 Type 2 diabetes mellitus with diabetic chronic kidney disease; I12.9 Hypertensive chronic kidney disease with stage 1 through stage 4 chronic kidney disease, or unspecified chronic kidney disease; N18.30 Chronic kidney disease, stage 3 unspecified; E11.43 Type 2 diabetes mellitus with diabetic autonomic (poly)neuropathy; K31.84 Gastroparesis; J44.9 Chronic obstructive pulmonary disease, unspecified; D50.9 Iron deficiency anemia, unspecified; E78.2 Mixed hyperlipidemia; R32 Unspecified urinary incontinence; E66.01 Morbid (severe) obesity due to excess calories; Z68.42 Body mass index [BMI] 45.0-49.9, adult; F32.A Depression, unspecified; E89.0 Postprocedural hypothyroidism; Z85.850 Personal history of malignant neoplasm of thyroid; Z79.4 Long term (current) use of insulin; Z79.84 Long term (current) use of oral hypoglycemic drugs; Z85.840 Personal history of malignant neoplasm of eye; R00.8 Other abnormalities of heart beat; R94.31 Abnormal electrocardiogram [ECG] [EKG]; I49.3 Ventricular premature depolarization
CPT/HCPCS: 36415; 71046; 72131; 80053; 85025; 93005; 96374; 96375; 99284; A9270; J1170; J2060; J2405

== ENCOUNTER 2022-08-12 00:33 | Emergency (ER) | payer MEDICARE, BC, SELFPAY ==
--- NOTE | ~2022-08-12 | XR_ITS ---
Portable chest x-ray Comparison: 08/13/2021 Clinical History: Cough Findings: Questionable minimal pulmonary edema pattern versus mild underpenetration. No pleural effu alessandro. Cardiomediastinal silhouette is stable. Bones and soft tissues are unremarkable. Impression: Possible minimal pulmonary edema. Reviewed, dictated and finalized at [facility] [place]. F ENGINEER PRODUCTION Impression: Possible minimal pulmonary edema.
[2022-08-12 00:34] VITALS: BP 144/67; PULSE 97; RESP 28; TEMP 37.6; O2SAT 98
--- NOTE | 2022-08-12 00:38 | ECG_ITS ---
Measurements Intervals [place] Rate: 92 P: -9 TX: 163 QRS: -19 QRSD: 96 T: -1 QT: 321 QTc: 397 Interpretive Statements SINUS RHYTHM WITH OCCASIONAL SUPRAVENTRICULAR PREMATURE COMPLEXES NONSPECIFIC ST AND T-WAVE ABNORMALITY COMPARED TO ECG 08/13/2021 14:52:33 NO SIGNIFICANT CHANGES Electronically Signed On 08-12-2022 14:50:46 GARMENT PATTERNMAKER by Yolie Navarro M.D.
[2022-08-12 00:43] LABS: Glucose Point of Care 272 mg/dl (65-105)
[2022-08-12 00:45] VITALS: O2SAT 96
[2022-08-12 01:00] VITALS: PULSE 91; RESP 19
[2022-08-12] MEDS: MICONAZOLE NITRATE 2% CREAM 30 GM TUBE 1 APPLIC TOPICAL (01:00)
[2022-08-12] MEDS: IPRATROPIUM BR 0.02% INH SOLN 0.5 MG/2.5 ML VIAL 1 MG INHALATION (01:04)
[2022-08-12] MEDS: ALBUTEROL SULFATE NEB 2.5 MG/3 ML INH 15 MG INHALATION (01:04)
[2022-08-12 02:03] LABS: Influenza A QL RT-PCR Negative (Negative); Influenza B QL RT-PCR Negative (Negative); RSV RNA, RT-PCR Negative (Negative); SARS-CoV-2 RNA PCR Negative
[2022-08-12 02:26] VITALS: PULSE 105; RESP 21
--- NOTE | 2022-08-12 02:53 | ED.SOB ---
HPI - SOB/Dyspnea General Chief Complaint: Shortness of Breath/Dyspnea Stated Complaint: JOHNNY, PNE Time Seen by Provider: 08/12/22 00:38 History of Present Illness HPI Narrative: 77-year-old female with history of COPD presents with increased difficulty breathing and productive cough the last few days. She also has an itchy irritated rash around her vulva. Related Data Allergies Allergy/AdvReac Type Severity Reaction Status Date / Time amlodipine Allergy Intermediate Hives Verified 04/05/22 07:28 Review of Systems Review of Systems: CONST: No fever. HEENT: No sore throat C/V: No chest pain RESP: productive cough GI: No abdominal pain : No dysuria. M/S: No joint pain. SKIN: Irritated rash to lower region NEURO: [No headache or focal numbness or weakness] PSYCH: [No depression] [facility] Past Medical History Medical History Anxiety disorder, unspecified Choroid melanoma of left eye It sounds as though she had a radioactive plaque inserted. Chronic kidney disease, stage 3 Baseline creatinine between 1.0 and 1.30. COPD (chronic obstructive pulmonary disease) Depression Diastolic dysfunction Echocardiogram in July 2018 showed normal left ventricular size and function was pseudo normal diastolic dysfunction grade 2 ejection fraction estimated at 60 to 65%. Epigastric pain Gastroparesis GERD (gastroesophageal reflux disease) Hypothyroidism Insomnia Insulin dependent type 2 diabetes mellitus Microcytic anemia Mixed hyperlipidemia Morbid obesity Nausea Thyroid cancer Type 2 diabetes mellitus without complications Urinary, incontinence, stress female Surgical History Surgical History History of cholecystectomy History of thyroidectomy History of total knee replacement Family History Family History Mother Cerebrovascular accident Diabetes mellitus Hypertension Father Chronic obstructive pulmonary disease Sibling Diabetes mellitus Other Family history of coronary artery disease Social History Social History Social History: The patient lives in [place] with her son and his family. She designates her son, Farhat, as her surrogate decision maker and she wishes to be a full code. She is a lifelong nonsmoker and denies alcohol and drug abuse. Patient ambulates with a walker. 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 HEAD: Normal with no signs of head trauma. EYES: EOMI, conjunctiva normal ENT: Hearing grossly intact LUNGS: Nonlabored breathing. Wheezing all lung cross HEART: [Regular rate and rhythm] ABD: No tenderness to palpation EXT: Normal range of motion SKIN: Chronic venous stasis ulcers bilateral lower extremities. Erythematous beefy rash with satellite lesions to the inner thighs/vulva NEURO: [Alert and oriented x 3. No gross focal sensory or strength deficits.] PSYCH: Normal affect Course Vital Signs Vital signs: Vital Signs Temperature 99.6 F 08/12/22 00:34 Pulse Rate 97 08/12/22 00:34 Respiratory Rate 28 H 08/12/22 00:34 Blood Pressure 144/67 H 08/12/22 00:34 Pulse Oximetry 98 08/12/22 00:34 Oxygen Delivery Nasal Cannula 08/12/22 00:34 Oxygen Flow Rate 4 08/12/22 00:34 Temperature 99.6 F 08/12/22 00:34 Pulse Rate 105 H 08/12/22 02:26 Respiratory Rate
[2022-08-12] MEDS: ACETAMINOPHEN 500 MG TABLET 1000 MG PO (02:54)
[2022-08-12] MEDS: AZITHROMYCIN 250 MG TABLET 500 MG PO (02:56)
[2022-08-12] MEDS: predniSONE 20 MG TABLET 40 MG PO (03:14)
[2022-08-12 03:30] VITALS: BP 109/55; PULSE 104; RESP 24; TEMP 37.2; O2SAT 98
--- NOTE | 2022-08-12 03:34 | PC.NURSE ---
Ambulance called for transportation to home, as pt is bedbound. Transport packet complete.
== END 2022-08-12 04:19 | disposition home or self-care (01) ==
PROVIDERS: Emergency Provider Emergency Medicine
DX: J44.1 Chronic obstructive pulmonary disease with (acute) exacerbation (principal); Z20.822 Contact with and (suspected) exposure to COVID-19; E11.22 Type 2 diabetes mellitus with diabetic chronic kidney disease; N18.30 Chronic kidney disease, stage 3 unspecified; K21.9 Gastro-esophageal reflux disease without esophagitis; D50.9 Iron deficiency anemia, unspecified; E66.01 Morbid (severe) obesity due to excess calories; Z68.41 Body mass index [BMI] 40.0-44.9, adult; N39.3 Stress incontinence (female) (male); E89.0 Postprocedural hypothyroidism; Z85.840 Personal history of malignant neoplasm of eye; Z85.850 Personal history of malignant neoplasm of thyroid; Z96.659 Presence of unspecified artificial knee joint; Z79.4 Long term (current) use of insulin; R94.31 Abnormal electrocardiogram [ECG] [EKG]; I49.1 Atrial premature depolarization
CPT/HCPCS: 71045; 82948; 87637; 93005; 94640; 99283; A9270; J7512